=== PATIENT | male | born 1945 | race African-American/Black ===

== ENCOUNTER 2020-03-22 14:14 | Inpatient (IN) | payer OTHER ==
[~2020-03-22] VITALS: Ht 185.4 cm; Wt 89.8 kg
[2020-03-22] MEDS ORDERED: IOHEXOL-350 100 ML BOTTLE ONE (15:05)
[2020-03-22 15:38] LABS: BASOPHILS % 1.6 % (0.0-2.0); EOSINOPHILS % 0.9 % (0.0-5.0); HEMATOCRIT. 42.2 % (42.0-52.0); HEMOGLOBIN. 13.7 g/dL (14.0-18.0); LYMPHOCYTES % 41.8 % (20.0-50.0); MEAN CORPUSCULAR HEMOGLOBIN 25.7 pg (28.0-32.0); MEAN CORPUSCULAR VOLUME 79.3 fL (80.0-94.0); MEAN PLATELET VOLUME 9.1 fl (7.4-10.4); MONOCYTES % 8.5 % (2.0-8.0); NEUTROPHILS % 47.2 % (40.0-76.0); PLATELET 336 x1000/uL (130-400); RED BLOOD CELL COUNT 5.32 mill/uL (4.7-6.1); RED CELL DISTRIBUTION WIDTH 14.3 % (11.6-14.6)
[2020-03-22] MEDS ORDERED: ASPIRIN 325MG EC TABLET PO ONE (15:45)
[2020-03-22 15:46] LABS: CHLORIDE 109 mEq/L (98-107)
[2020-03-22 15:47] LABS: PARTIAL THROMBOPLASTIN TIME 28.1 sec (23.4-31.0); PROTHROMBIN TIME 10.4 sec (9.6-11.0)
[2020-03-22 15:53] LABS: LDL CHOLESTEROL 147 mg/dL (5-100)
[2020-03-22] MEDS ORDERED: ACETAMINOPHEN 325MG TABLET PO PRN ×2 (18:45)
[2020-03-22] MEDS ORDERED: DIPHENHYDRAMINE 50MG/ML VIAL IV PRN (18:45)
[2020-03-22] MEDS ORDERED: DEXTROSE 50% WATER 50ML SYRINGE IV PRN (18:45)
[2020-03-22] MEDS ORDERED: ONDANSETRON HCL 4MG/2ML INJ IV PRN (18:45)
[2020-03-22] MEDS ORDERED: ZOLPIDEM TARTRATE 5MG TABLET PO PRN (20:00)
[2020-03-22] MEDS: INSULIN LISPRO 100 UNITS/ML SUBCUT SCH (22:44)
[2020-03-22] MEDS: FAMOTIDINE 20MG TABLET PO SCH (22:44)
[2020-03-22] MEDS: ENOXAPARIN 30MG/0.3ML SYR SUBCUT SCH (22:44)
[2020-03-22] MEDS: ATORVASTATIN CALCIUM 40MG TABLET PO SCH (22:44)
[2020-03-22] MEDS: SODIUM CHLORIDE 0.9% INJ 3ML FLUSH IVF SCH (22:45)
[2020-03-22] MEDS: BLOOD SUGAR DIAGNOSTIC STRIP TEST SCH (22:45)
[2020-03-22] MEDS: THEOPHYLLINE ANHYDROUS 80 MG/15 ML 120ML PO SCH (23:13)
[2020-03-23 03:33] LABS: CLARITY URINE CLEAR (CLEAR); COLOR URINE YELLOW (YELLOW); KETONES URINE NEGATIVE (NEGATIVE); LEUKOCYTE ESTERASE URINE NEGATIVE (NEGATIVE); NITRITE URINE NEGATIVE (NEGATIVE); OCCULT BLOOD URINE NEGATIVE (NEGATIVE); PROTEIN URINE 3+ (NEGATIVE); UROBILINOGEN URINE 0.2 E.U./dL (0.2-1.0)
[2020-03-23] MEDS: SODIUM CHLORIDE 0.9% INJ 3ML FLUSH IVF SCH ×3 (08:00→22:00)
[2020-03-23] MEDS: ASPIRIN 81MG EC TABLET PO SCH (14:37)
[2020-03-23] MEDS: FAMOTIDINE 20MG TABLET PO SCH ×2 (14:38→21:00)
[2020-03-23] MEDS: BLOOD SUGAR DIAGNOSTIC STRIP TEST SCH ×3 (14:38→21:00)
[2020-03-23] MEDS: ENOXAPARIN 30MG/0.3ML SYR SUBCUT SCH (14:39)
[2020-03-23] MEDS: INSULIN LISPRO 100 UNITS/ML SUBCUT SCH ×3 (14:42→21:00)
[2020-03-23] MEDS: THEOPHYLLINE ANHYDROUS 80 MG/15 ML 120ML PO SCH (14:45)
[2020-03-23] MEDS: ENOXAPARIN 100MG/ML SYR SUBCUT SCH (18:00)
[2020-03-23] MEDS: ATORVASTATIN CALCIUM 40MG TABLET PO SCH (21:00)
[2020-03-23 23:45] VITALS: BP 145/80
[2020-03-24] MEDS ORDERED: METF-414 PO (00:52)
[2020-03-24] MEDS ORDERED: ATOR40TA70 PO (01:37)
[2020-03-24] MEDS ORDERED: LISI-648 PO (01:38)
[2020-03-24] MEDS: ENOXAPARIN 100MG/ML SYR SUBCUT SCH (05:22)
[2020-03-24] MEDS: SODIUM CHLORIDE 0.9% INJ 3ML FLUSH IVF SCH ×3 (05:24→21:39)
[2020-03-24] MEDS: BLOOD SUGAR DIAGNOSTIC STRIP TEST SCH ×4 (06:45→21:39)
[2020-03-24] MEDS: INSULIN LISPRO 100 UNITS/ML SUBCUT SCH ×4 (07:15→21:00)
[2020-03-24 08:00] VITALS: BP 142/87
[2020-03-24 08:26] LABS: BASOPHILS % 1.3 % (0.0-2.0); EOSINOPHILS % 0.9 % (0.0-5.0); HEMATOCRIT. 45.4 % (42.0-52.0); HEMOGLOBIN. 14.9 g/dL (14.0-18.0); LYMPHOCYTES % 24.9 % (20.0-50.0); MEAN CORPUSCULAR HEMOGLOBIN 26.1 pg (28.0-32.0); MEAN CORPUSCULAR VOLUME 79.6 fL (80.0-94.0); MEAN PLATELET VOLUME 9.6 fl (7.4-10.4); MONOCYTES % 7.1 % (2.0-8.0); NEUTROPHILS % 65.8 % (40.0-76.0); PLATELET 366 x1000/uL (130-400); RED BLOOD CELL COUNT 5.71 mill/uL (4.7-6.1); RED CELL DISTRIBUTION WIDTH 14.1 % (11.6-14.6)
[2020-03-24 08:35] LABS: PHOSPHORUS 3.2 mg/dL (2.5-4.9)
[2020-03-24] MEDS: FAMOTIDINE 20MG TABLET PO SCH ×2 (08:55→21:38)
[2020-03-24] MEDS: ASPIRIN 81MG EC TABLET PO SCH (08:55)
[2020-03-24] MEDS ORDERED: ENOXAPARIN 40MG/0.4ML SYR SUBCUT SCH (09:00)
[2020-03-24 12:00] VITALS: BP 178/97
[2020-03-24] MEDS: HYDRALAZINE HCL 25MG TABLET PO SCH ×2 (13:46→21:38)
[2020-03-24] MEDS: FUROSEMIDE 40MG TABLET PO SCH (15:39)
[2020-03-24 16:00] VITALS: BP 158/75
[2020-03-24 20:00] VITALS: BP 129/75
[2020-03-24] MEDS: ATORVASTATIN CALCIUM 40MG TABLET PO SCH (21:38)
[2020-03-24 23:35] VITALS: BP 143/85
[2020-03-25 04:00] VITALS: BP 162/96
[2020-03-25] MEDS: HYDRALAZINE HCL 25MG TABLET PO SCH ×2 (06:20→13:13)
[2020-03-25] MEDS: SODIUM CHLORIDE 0.9% INJ 3ML FLUSH IVF SCH ×2 (06:20→13:10)
[2020-03-25] MEDS: BLOOD SUGAR DIAGNOSTIC STRIP TEST SCH ×2 (06:20→12:30)
[2020-03-25] MEDS: INSULIN LISPRO 100 UNITS/ML SUBCUT SCH ×2 (06:51→13:09)
[2020-03-25 08:00] VITALS: BP 190/106
[2020-03-25] MEDS ORDERED: APIXABAN 5 MG TABLET PO SCH (09:00)
[2020-03-25] MEDS: FAMOTIDINE 20MG TABLET PO SCH (09:41)
[2020-03-25] MEDS: ASPIRIN 81MG EC TABLET PO SCH (09:41)
[2020-03-25] MEDS: FUROSEMIDE 40MG TABLET PO SCH (09:41)
[2020-03-25] MEDS ORDERED: LISINOPRIL 20MG TABLET PO SCH ×2 (10:15→10:30)
[2020-03-25 12:00] VITALS: BP 142/115
[2020-03-25 13:51] VITALS: BP 142/115
== END 2020-03-25 15:03 | disposition home or self-care (01) | DRG 64 ==
LOC: ER 14:27 → EDBEDREQSVC 17:03 → EDBEDREQ 17:03 → 5WST 03-23 16:50
PROVIDERS: ADMIT Internal Medicine; ATTEND Internal Medicine
DX: I63.9 Cerebral infarction, unspecified (principal); N17.0 Acute kidney failure with tubular necrosis; I50.43 Acute on chronic combined systolic (congestive) and diastolic (congestive) heart failure; I13.0 Hypertensive heart and chronic kidney disease with heart failure and stage 1 through stage 4 chronic kidney disease, or unspecified chronic kidney disease; I48.0 Paroxysmal atrial fibrillation; E78.00 Pure hypercholesterolemia, unspecified; E78.5 Hyperlipidemia, unspecified; I16.0 Hypertensive urgency; I49.3 Ventricular premature depolarization; E11.65 Type 2 diabetes mellitus with hyperglycemia; R29.810 Facial weakness; I70.0 Atherosclerosis of aorta; Z20.822 Contact with and (suspected) exposure to COVID-19; R47.01 Aphasia; N18.9 Chronic kidney disease, unspecified; Z83.3 Family history of diabetes mellitus; Z85.028 Personal history of other malignant neoplasm of stomach; Z86.73 Personal history of transient ischemic attack (TIA), and cerebral infarction without residual deficits; Z90.3 Acquired absence of stomach [part of]; Z79.899 Other long term (current) drug therapy
CPT/HCPCS: 36415; 70496; 70498; 70551; 71045; 80048; 80053; 81003; 82962; 83036; 83721; 83735; 83880; 84100; 84484; 85025; 87426; 93005; 93306; 95816; 96372; 99291; J1650; J1815; Q9967